=== PATIENT | male | born 1990 | race Two or more races ===

== ENCOUNTER 2024-03-17 19:38 | Emergency (ER) | payer SELFPAY ==
[2024-03-17 19:54] VITALS: BP 133/83; PULSE 78; RESP 18; TEMP 98.8; BMI 31.3
[2024-03-17 23:13] LABS: HIV INTERPRETATION NEGATIVE (NEGATIVE)
== END 2024-03-17 22:28 | disposition home or self-care (01) ==
LOC: JERFT 19:38
DX: Z11.3 Encounter for screening for infections with a predominantly sexual mode of transmission (principal)
CPT/HCPCS: 36415; 86695; 86696; 86780; 86803; 87389; 87491; 87591; 87661; 99283-25

== ENCOUNTER 2024-04-19 01:29 | Emergency (ER) | payer SELFPAY ==
[2024-04-19 01:36] VITALS: TEMP 98; BMI 34.3
[2024-04-19 05:03] LABS: BASO % 2.6 % (0-2.0); EOS % 3.3 % (0-4.5); HEMATOCRIT 46.9 % (35.4-49); HEMOGLOBIN 15.4 GM/dL (11.7-16.9); LYMPH % 52.6 % (8-40); MCH 28.5 pg (25.7-33.7); MCHC 32.8 g/dl (32.0-35.9); MEAN CELL VOLUME 86.8 fl (80-96); MEAN PLT VOLUME 9.1 fl (7.5-11.1); MONO % 7.3 % (3.8-10.2); NEUT % 34.2 % (42.8-82.8); PLATELET COUNT 189 10^3/uL (134-434); RBC 5.41 M/mm3 (4.00-5.60); RDW 13.1 % (11.9-15.9)
[2024-04-19 05:26] LABS: POTASSIUM 4.2 mmol/L (3.5-5.1)
[2024-04-19 05:28] LABS: CALCIUM 8.5 mg/dL (8.5-10.1)
[2024-04-19 05:29] LABS: ALBUMIN 3.9 g/dl (3.4-5.0); BLOOD UREA NITROGEN 10.1 mg/dL (7-18)
[2024-04-19 05:32] LABS: CREATININE 0.8 mg/dL (0.55-1.3)
[2024-04-19 05:33] LABS: BILIRUBIN,TOTAL 0.2 mg/dL (0.2-1); TOT PROT 7.2 g/dl (6.4-8.2)
[2024-04-19 05:57] LABS: COCAINE, UR NEGATIVE (NEGATIVE); METHADONE, UR NEGATIVE (NEGATIVE); OPIATES, URI NEGATIVE (NEGATIVE); PHENCYCLIDINE,URINE NEGATIVE (NEGATIVE); URINE AMPHETAMINES NEGATIVE (NEGATIVE); URINE BARBITURATES NEGATIVE (NEGATIVE); URINE BENZODIAZEPINES NEGATIVE (NEGATIVE)
[2024-04-19] MEDS ORDERED: ONDANSETRON *ODT* 4 MG TABLET ONE (07:40)
[2024-04-19] MEDS: ONDANSETRON *ODT* 4 MG TABLET SL ONE (07:45)
[2024-04-19] MEDS: ONDANSETRON 4 MG/2 ML VIAL IVPUSH ONE (07:46)
[2024-04-19] MEDS: LACTATED RINGERS SOLUTION 1000 ML INFUS.BAG IV ONE (07:46)
[2024-04-19] MEDS: ACETAMINOPHEN 1000 MG/100 ML BAG IVPB ONE (07:46)
[2024-04-19] MEDS ORDERED: ACETAMINOPHEN 325 MG TABLET (FP) ONE (07:55)
[2024-04-19] MEDS: ACETAMINOPHEN 500 MG TABLET (FP) PO ONE (08:06)
[2024-04-19 08:46] VITALS: BP 115/74; PULSE 69; RESP 20
== END 2024-04-19 09:29 | disposition home or self-care (01) ==
LOC: JER 01:29
DX: F10.129 Alcohol abuse with intoxication, unspecified (principal); Y90.8 Blood alcohol level of 240 mg/100 ml or more
CPT/HCPCS: 36415; 80053; 80307; 82962; 85025; 93005; 93010; 99284-25; Q0162

== ENCOUNTER 2024-06-12 21:35 | Emergency (ER) | payer SELFPAY ==
[2024-06-12 22:13] VITALS: RESP 12; TEMP 98.9; BMI 33.9
[2024-06-12] MEDS ORDERED: NALOXONE HCL 0.4 MG/ML VIAL ONE (22:44)
[2024-06-12] MEDS: NALOXONE HCL 0.4 MG/ML VIAL IVPUSH ONE (22:47)
[2024-06-12] MEDS ORDERED: ONDANSETRON 4 MG/2 ML VIAL ONE (23:20)
[2024-06-12] MEDS: ONDANSETRON 4 MG/2 ML VIAL IVPUSH ONE (23:22)
[2024-06-13 02:59] VITALS: BP 120/81; PULSE 60
== END 2024-06-13 04:40 | disposition home or self-care (01) ==
LOC: JER 21:35
PROC: 3E033NZ Introduction of Analgesics, Hypnotics, Sedatives into Peripheral Vein, Percutaneous Approach (ICD-10-PCS; principal; 2024-06-12)
PROC: 3E033GC Introduction of Other Therapeutic Substance into Peripheral Vein, Percutaneous Approach (ICD-10-PCS; 2024-06-12)
DX: F19.920 Other psychoactive substance use, unspecified with intoxication, uncomplicated (principal)
CPT/HCPCS: 36415; 80307; 99284-25